=== PATIENT | female | born 1990 | race Caucasian/White ===

== ENCOUNTER → 2019-04-13 14:43 | Outpatient (CLI) | payer OTHER, SELFPAY ==
[2019-04-13 15:56] LABS: Free T4, Direct Thyroxine 1.12 ng/dL (0.78-2.19)
[2019-04-13 16:10] LABS: Thyroid Stimulating Hormone 2.32 uIU/mL (0.47-4.68)
[2019-04-13 16:42] LABS: Follicle Stimulating Hormone 6.04 mIU/mL
== END ==
PROVIDERS: Visit Provider Obstetrics & Gynecology
DX: N92.0 Excessive and frequent menstruation with regular cycle (principal)
CPT/HCPCS: 36415; 83001; 83002; 84439; 84443